=== PATIENT | female | born 1940 | race Caucasian/White ===

== ENCOUNTER 2019-03-29 11:01 | Emergency (ER) | payer MEDICARE, BC ==
[2019-03-29] MEDS: ACETAMINOPHEN 325 MG TAB PO (12:59)
== END 2019-03-29 14:17 | disposition home or self-care (01) ==
LOC: FTE 14:17
DX: S80.02XA Contusion of left knee, initial encounter (principal); I10 Essential (primary) hypertension; S29.9XXA Unspecified injury of thorax, initial encounter; V49.59XA Passenger injured in collision with other motor vehicles in traffic accident, initial encounter
CPT/HCPCS: 71045; 73562; 93005; 99284-25